=== PATIENT | female | born 1955 | race Caucasian/White ===

== ENCOUNTER 2018-09-30 16:26 | Emergency (ER) | payer MEDICARE, BC ==
[~2018-09-30] VITALS: Ht 162.6 cm; Wt 89.8 kg
[2018-09-30] MEDS ORDERED: TDAP DIPH,PERTUSS,TET VAC/PF 0.5 ML DISP.SYRIN IM ONE ×2 (17:15→17:31)
--- NOTE | 2018-09-30 17:48 | NUR ---
PT WAS EVALUATED BY DR SHELL. PT WAS D/C'd TO HOME. D/C INSTRUCTIONS GIVEN TO THE PT.
[2018-09-30 17:49] VITALS: BP 123/68
== END 2018-09-30 17:50 | disposition home or self-care (01) ==
LOC: ER 16:26
DX: S61.012A Laceration without foreign body of left thumb without damage to nail, initial encounter (principal); Z88.1 Allergy status to other antibiotic agents; Z88.8 Allergy status to other drugs, medicaments and biological substances; Z91.040 Latex allergy status; W26.0XXA Contact with knife, initial encounter; Y93.89 Activity, other specified; Y92.89 Other specified places as the place of occurrence of the external cause; Y99.8 Other external cause status
CPT/HCPCS: 90715; A4217; A4663

== ENCOUNTER 2021-03-06 07:57 | Emergency (ER) | payer MEDICARE, BC ==
[~2021-03-06] VITALS: Ht 162.6 cm; Wt 89.8 kg
[2021-03-06] MEDS ORDERED: ACET-73 PO (08:25)
[2021-03-06] MEDS ORDERED: CHOL200010 (08:25)
[2021-03-06] MEDS ORDERED: ASCO500T10 PO (08:25)
[2021-03-06] MEDS ORDERED: ATOR10TA PO (08:25)
[2021-03-06] MEDS ORDERED: LANS30CA56 PO (08:25)
[2021-03-06] MEDS ORDERED: VITAMIN B-COMPLEX (08:25)
[2021-03-06] MEDS ORDERED: ZOLP5TAB8 PO (08:25)
[2021-03-06] MEDS ORDERED: LAXATIVE (08:25)
[2021-03-06] MEDS ORDERED: CLON1TAB12 PO (08:25)
[2021-03-06] MEDS ORDERED: GABA300C PO (08:25)
[2021-03-06] MEDS ORDERED: DULO60CA45 PO (08:25)
[2021-03-06] MEDS ORDERED: ASPI81TA31 PO (08:25)
[2021-03-06] MEDS ORDERED: CRAN300T PO (08:25)
--- NOTE | 2021-03-06 08:37 | NUR ---
ASSISSTED MD WITH GLUING THE LAC ON THE RIGT EYELID. PT TOLERATED WELL.
--- NOTE | 2021-03-06 09:07 | NUR ---
Patient discharged to home in stable condition. Written and verbal after care instructions given. Patient verbalizes understanding of instructions. Stressed follow up or return to ER for worsening s/s.
== END 2021-03-06 09:10 | disposition home or self-care (01) ==
LOC: ER 07:57
DX: S01.111A Laceration without foreign body of right eyelid and periocular area, initial encounter (principal); W18.09XA Striking against other object with subsequent fall, initial encounter; Y92.032 Bedroom in apartment as the place of occurrence of the external cause; Z95.2 Presence of prosthetic heart valve; Z88.8 Allergy status to other drugs, medicaments and biological substances; Z91.040 Latex allergy status; Z79.82 Long term (current) use of aspirin; Z79.899 Other long term (current) drug therapy
CPT/HCPCS: A4663